=== PATIENT | female | born 1940 | race Caucasian/White ===

== ENCOUNTER → 2021-03-22 | Outpatient (CLI) | payer MEDICARE ==
[~2021-03-22] MED LIST: ASPI81CH PO; Lopressor 25 mg25 MG PO
== END ==
LOC: LAB 11:46 → LAB SHORT 11:46
DX: D48.5 Neoplasm of uncertain behavior of skin (principal)
CPT/HCPCS: 88305

== ENCOUNTER 2021-04-19 08:09 | Day surgery (SDC) | payer MEDICARE ==
[~2021-04-19] VITALS: Ht 172.7 cm; Wt 53.0 kg
[~2021-04-19 08:09] MED LIST changes: +AMIT25 PO; +GABA100 PO; +Percocet 5-3251 EACH PO
--- NOTE | 2021-04-19 16:42 | NUR ---
TO RECOVERY ROOM VIA [facility]. PT IS AWAKE AND ORIENTED. TR BAND RIGHT RADIAL WITH 15 CC AIR. HAND IS BLUE. 1 CC AIR REMOVED. HAND IS NOW PINK. MOTION AND SENSATION NORMAL. RIGHT GROIN SOFT NONTENDER WITH ANGIOSEAL. LEFT GROIN SOFT AND NO TENDER.
--- NOTE | 2021-04-19 16:45 | NUR ---
#14 HODGE PLACED. PT UNABLE TO VOID LAYING FLAT.
--- NOTE | 2021-04-19 16:55 | NUR ---
CO/NAUSEA AND DRY HEAVE VOMITING. ZOFRAN GIVEN PER VERBAL ORDER.
--- NOTE | 2021-04-19 17:03 | NUR ---
BP DOWN AFTER APRESOLINE IV IN ANALYTICS INTERN. PT RESTING AT THIS TIME.HODGE DRAINS CLEAR DK YELLOW URINE.
--- NOTE | 2021-04-19 17:51 | NUR ---
ALL SITES VISUALIZED. 1 CC AIR REMOVED FROM TR BAND.
--- NOTE | 2021-04-19 17:51 | NUR ---
Report given to Abdulaziz CHAPMAN.
--- NOTE | 2021-04-19 18:02 | NUR ---
assumed care of patient from Neda CHAPMAN. right and left groin sites soft and nontender. no bleeding no hematoma. right radial site with TR band in place no bleeding, no hematoma.
--- NOTE | 2021-04-19 18:25 | NUR ---
4 MG ZOFRAN IV GIVEN FOR NAUSEA/VOMIT.
--- NOTE | 2021-04-19 18:32 | NUR ---
PATIENT TALKING TO FAMILY ON PHONE. STATES THAT NAUSEA IS RESOLVING.
--- NOTE | 2021-04-19 19:00 | NUR ---
HODGE DCED WITH 500 CC CLEAR YELLOW URINE IN BAG. PATIENT AMBULATED TO RESTROOM TO TRY AND VOID. VOIDED SMALL AMOUNT OF URINE.
--- NOTE | 2021-04-19 19:15 | NUR ---
IV SITE DCED WITH CATHETER IN TACT. CLOTH DOT TO RIGHT RADIAL ARTERY SITE. ARM BOARD PLACED. PATIENT DRESSED AND SLING TO RIGHT ARM PLACED.
--- NOTE | 2021-04-19 19:24 | NUR ---
AIR REMOVED FROM TR BAND. TR BAND REMAINS IN PLACE. SITE SOFT AND NONTENDER. NO BLEEDING. NO HEMATOMA. RIGHT AND LEFT GROIN SITES SOFT AND NONTENDER. NOHEMATOMA NO BLEEDING.
--- NOTE | 2021-04-19 19:32 | NUR ---
PATIENT VERBALIZED UNDERSTANDING OF DISCHARGE INSTRUCTIONS AND PRECAUTIONS. BILATERAL GROIN SITES STABLE. RIGHT RADIAL SITE STABLE. PATIENT DENIES NAUSEA. PATIENT TAKEN BY WHEEL CHAIR TO WAITING CAR BY BUD CHAPMAN.
== END 2021-04-19 23:02 | disposition home or self-care (01) ==
LOC: MHTC 08:09
DX: I70.223 Atherosclerosis of native arteries of extremities with rest pain, bilateral legs (principal); Z87.891 Personal history of nicotine dependence
CPT/HCPCS: 76937; 93005; 93010; 99152; 99153; C1725; C1760; C1769; C1773; C1874; C1876; C1887; C1894; J0360; J1644; J2250; J2405; J3010; J7030; J7040; J7050; Q9967

== ENCOUNTER 2021-08-11 06:25 | Day surgery (SDC) | payer MEDICARE ==
[~2021-08-11] VITALS: Ht 172.7 cm; Wt 53.5 kg
[2021-08-11] MEDS ORDERED: Percocet 5-3251 EACH PO (07:07)
--- NOTE | 2021-08-11 10:41 | NUR ---
PT RETURNED TO RECOVERY ROOM IN BED. RIGHT FEMORAL GROIN SITE SOFT NON-TENDER WITH NO HEMATOMA, NO BLEEDING AND INTACT DRESSING. LEFT PT SITE SOFT NON-TENDER WITH NO HEMATOMA,WITH SLIGHT TRACK OOZING NOTED AND INTACT DRESSING. PT DENIES CHEST PAIN AND CALL LIGHT IN REACH.
[2021-08-11] MEDS ORDERED: CLOP75 PO (11:29)
--- NOTE | 2021-08-11 12:04 | NUR ---
PT STATES NAUSEA IMPROVING.
--- NOTE | 2021-08-11 12:35 | NUR ---
PT EATING LUNCH. NO CHANGES TO R FEM OR L PT SITES.
--- NOTE | 2021-08-11 13:15 | NUR ---
NO CHANGES TO RIGHT FEMORAL GROIN SITE OR LEFT PT SITE. DISCHARGE INSTRUCTIONS REVIEWED AND ALL QUESTIONS ANSWERED. DR MCKEON IN ROOM TO SEE PT.
--- NOTE | 2021-08-11 13:46 | NUR ---
20 G IV DISCONTINUED FROM RIGHT AC WITH INTACT CANNULA. PT ESCORTED OUT VIA WHEELCHAIR ESCORT.
== END 2021-08-11 14:02 | disposition home or self-care (01) ==
LOC: MHTC 06:25
DX: I70.223 Atherosclerosis of native arteries of extremities with rest pain, bilateral legs (principal); F17.200 Nicotine dependence, unspecified, uncomplicated
CPT/HCPCS: 37220; 37221; 37223; 37224; 75716; 75774; 76937; 85347; 99152; 99153; A9270; C1725; C1760; C1769; C1874; C1876; C1887; C1894; J1644; J2250; J2405; J3010; J7030; J7050; Q9967

== ENCOUNTER 2023-05-18 10:45 | Inpatient (IN) | payer MEDICARE ==
[2023-05-18] VITALS (12 sets, daily range): BP systolic 95–131; BP diastolic 61–87
[~2023-05-18] VITALS: Ht 172.7 cm; Wt 50.2 kg
[~2023-05-18 10:45] MED LIST changes: +ASPIR 8181 M1 PO; +CILO100 PO; +CLOP75 PO; +ROSU10TA PO; +XARELTO20 MG PO
[2023-05-18] MEDS ORDERED: HYDR1TAB94 PO (11:35)
--- NOTE | 2023-05-18 14:10 | NUR ---
PT BACK TO RECOVERY FROM LAB. PT RESTING FLAT IN BED W/ EYES CLOSED. GROIN SITE SOFT AND NON-TENDER. NO BLEEDING NOTED.
--- NOTE | 2023-05-18 14:12 | NUR ---
NAVYA PUT IN PLACE BY TOMAS CHAPMAN
--- NOTE | 2023-05-18 14:37 | NUR ---
DR MCKEON AT BEDSIDE DISCUSSING PLAN OF CARE WITH PT AND CALLED DAUGHTER TO INFORM HER OF PLAN WELL.
--- NOTE | 2023-05-18 14:50 | NUR ---
PT ADJUSTED IN BED. PT PLACED ON O2 VIA NC AT 4 LPM. PT RESTING W/ EYES CLOSED.
--- NOTE | 2023-05-18 16:03 | NUR ---
PT FOUND TO BE SOILED. BEDDING CHANGED. PT NOW SITTING UP. GROIN SITE SOFT AND NON-TENDER.
--- NOTE | 2023-05-18 16:04 | NUR ---
NO SIGN OF BLEEDING TO GROIN SITE.
--- NOTE | 2023-05-18 16:53 | NUR ---
PT BEDDING CHANGED. ATTENDS PLACED. PT GIVEN WARM BLANKET. GROIN SITE SOFT AND NON-TENDER PER PT. NO BLEEDING NOTED. PT REPORTS CONTINUED PAIN TO L LOWER LEG. PT AMBULATED W/ ASSISTANCE TO BSC UPON ARRIVAL TO PCU. REPORT GIVEN TO ROUGH AND TRUING MACHINE OPERATOR.
--- NOTE | 2023-05-18 19:30 | NUR ---
SHIFT SUMMARY PT ARRIVED TO UNIT AT APPROXIMATELY 1615 FROM [facility]. SHE IS ON RA AND MAINTAINING 02 SATURATION ABOVE 92%, AND DENIES SOB. HER HR SR 90'S-LOW 100'S, SHE DENIES CHEST PAIN/PRESSURE. PT COMPLAINS OF L HIP PAIN THAT GOES ALL THE WAY DOWN HER LEFT LEG TO HER TOES, PT MEDICATED PER EMAR. PT WALKS TO BEDSIDE COMMODE WITH HER CANE AND STAND BY ASSIST. PT SAID SHE HAS BEEN EXPERIENCING OCCASIONAL INCONTINENCE SO SHE IS WEARING A BRIEF. SHE HAS NOT HAD AN INCONTINENT EPISODE SINCE ARRIVING TO UNIT. PT HAS FAMILY AT BEDSIDE. BEDSIDE SHIFT REPORT PERFORMED WITH INFORMATION TECHNOLOGY PROFESSOR NURSE, THIS RN, AND PT. PT RESTING IN BED WITH TV ON, CALL LIGHT WITHIN REACH.
[2023-05-18] MEDS ORDERED: XARELTO20 MG PO (20:03)
[2023-05-19 04:21] VITALS: BP 110/52
[2023-05-19 05:03] LABS: BASOPHILS ABSOLUTE AUTO 0.08 K/mm3 (0.00-0.23); BASOPHILS PERCENT AUTO 1 % (0-2); EOSINOPHILS ABSOLUTE AUTO 0.25 K/mm3 (0.00-0.68); EOSINOPHILS PERCENT AUTO 2 % (0-6); Hematocrit 33.6 % (33.0-51.0); IMMATURE GRAN ABSOLUTE AUTO 0.07 K/mm3 (0.00-0.10); IMMATURE GRAN PERCENT AUTO 1 % (0-1); LYMPHOCYTES PERCENT AUTO 8 % (21-46); MONOCYTES ABSOLUTE AUTO 0.99 K/mm3 (0.16-1.47); MONOCYTES PERCENT AUTO 8 % (4-13); Mean Corpuscular HGB 28.5 pg (26.0-34.0); Mean Corpuscular HGB Conc 32.7 g/dL (31.5-36.5); Mean Corpuscular Volume 87 fL (80-100); Mean Platelet Volume 9.3 fL (9.1-12.4); NEUTROPHILS PERCENT AUTO 80 % (41-73); Platelet Count 244 K/mm3 (150-400); RDW Coefficient Variation 12.8 % (11.7-14.2); RDW Standard Deviation 40.5 fL (35.1-46.3); Red Blood Cell Count 3.86 M/mm3 (3.80-5.20); White Blood Cell Count 12.09 K/mm3 (4.00-11.30)
--- NOTE | 2023-05-19 05:23 | NUR ---
SHIFT SUMMARY. PT AOX4, COOPERATIVE WITH CARE. PRIMARY GOAL OF SHIFT HAS BEEN PAIN MANAGEMENT. R GROIN SITE REMAINS C/D/I. NO COMPLAINTS OF PAIN AT R GROIN SITE. PRIMARY AREA OF COMPLAINT OF PAIN HAS BEEN LEFT LOWER EXTREMITY, SOME IN LEFT HIP. PT HAS BLE ISCHEMIA, PLAN IS TO MANAGE OUTPATIENT WITH [facility]. SPOKE WITH RESIDENT EARLY IN SHIFT, SWITCHED FENTANYL IV TO DILAUDID 0.5-1 MG IV Q4 PRN. BETWEEN NORCO 5 MG Q4 AND DILAUDID Q4 PT PAIN HAS NOT BEEN CONSISTENTLY ADEQUATELY MANAGED. PT DESCRIBES LLE PAIN "PINS AND NEEDLES". RESIDENT ALSO ORDERED ONE TIME DOSE OF GABAPENTIN TO SUPPLEMENT HER SCHEDULED GABAPENTIN LAST NIGHT AND INCREASED DAILY GABAPENTIN GOING FORWARD. STILL, PT FREQUENTLY COMPLAINS OF PAIN AND IS ONLY SPORADICALLY ABLE TO SLEEP. LLE PULSE PALPABLE ALTHOUGH CAP REFILL >3 SECONDS, 2nd/3rd/4th DIGITS OF LEFT FOOT WHITE. TELE HAS BEEN ON THROUGHOUT SHIFT WITH NO EVENTS, PT TACHY WHEN PAIN ESCALATES. 1 PERSON ASSIST TO BEDSIDE COMMODE, FREQUENT URGENT VOIDING BUT ONLY PRODUCES SMALL AMOUNT WHEN ATTEMPTING TO DO SO. PT CALLS APPROPRIATELY AND IS ABLE TO MAKE NEEDS KNOWN. BED HAS BEEN LOCKED IN LOWEST POSITION. PT HAS BEEN CONTINENT THROUGHOUT SHIFT THUS FAR. PT HAD ONE INSTANCE OF DESATURATION INTO MID 80s WHILE SLEEPING EARLY THIS MORNING SO APPLIED 2 L 02 VIA NC JUST WHILE SLEEPING AND PT HAS BEEN MAINTAINING >92% SINCE. SATTING WELL ON ROOM AIR WHILE AWAKE AND RESPIRATIONS EVEN/UNLABORED AT REST. CONTINUING TO MONITOR.
[2023-05-19 05:27] LABS: Albumin, Blood 2.4 g/dL (3.4-5.0); Albumin/Globulin Ratio 0.6 (0.8-1.8); Bilirubin, Total 0.6 mg/dL (0.1-1.0); Bun/Creatinine Ratio 21.8 (12.0-20.0); Calcium, Blood 8.3 mg/dL (8.5-10.1); Creatinine, Blood 0.73 mg/dL (0.40-1.00); Globulin, Blood 3.9 g/dL (2.2-4.0); Total Protein, Blood 6.3 g/dL (6.4-8.2)
[2023-05-19 07:36] VITALS: BP 90/74
[2023-05-19 11:50] VITALS: BP 97/48
--- NOTE | 2023-05-19 13:30 | NUR ---
PT ALERT AND ORIENTED X 4, COOPERATIVE WITH CARE AND ABLE TO MAKE NEEDS KNOWN. JV. ATTENDANCE SECRETARY REPORTED THEY PLACED 3L NC ON PT HER OXYGEN SATURATION WAS DIPPING INTO THE 80'S W/EXERTION. PT STILL ON 3L NC AND MAINTAINING 02 SATURATION ABOVE 92%, PT DENIES SOB. PT'S HR 90'S-100'S, SHE DENIES CHEST PAIN/PRESSURE. PT CONTINENT BUT SAID SHE HAS BEEN RECENTLY HAVING SOME INCONTINENCE AND URGENCY/FREQUENCY, ATTENDS IN PLACE AND CHANGED PRN. SHE HAS NOT HAD AN EPISODE OF INCONTINENCE TODAY. PT UP TO BEDSIDE COMMODE OFTEN WITH SBA. PT EPRESSED AT BEGINNING OF SHIFT THAT HER MAIN CONCERN TODAY WAS HER LEVEL OF PAIN IN HER L HIP/LEG/FOOT DUE TO ISCHEMIA. MD NOTIFIED, ORDERS PLACED, PT MEDICATED PER EMAR. SINCE DOSE CHANGE OF PAIN MEDICATIONS PT HAS BEEN ABLE GET SOME SLEEP TODAY. ATTENDANCE SECRETARY REPORTED THAT SHE WAS UP THE MAJORITY OF THE NIGHT DUE TO HER PAIN. PT HAD A CTA TODAY AND IS DUE TO HAVE AN ECHO WELL. DISK OF CTA IN PT'S CHART FOR HER TO TAKE WITH HER WHEN SHE DISCHARGES, CTA DEPARTMENT ALSO NOTIFIED REPORT NEEDS TO BE SENT TO [facility]. IT WAS CONFIRMED TODAY WITH [facility] THAT PT HAS APT SCHEDULED FOR NEXT MONDAY IN [place] WITH [facility]. PT HAD A COUPLE VISITORS EARLIER IN THE SHIFT TODAY. PT CURRENTLY RESTING IN HER BED WITH THE TV ON. CALL LIGHT WITHIN REACH.
[2023-05-19 16:13] VITALS: BP 91/56
--- NOTE | 2023-05-19 17:29 | NUR ---
SHIFT SUMMARY NO ACUTE CHANGES, SEE PREVIOUS NOTE. ECHO WAS PERFORMED. DISC FOR ECHO AND CTA GIVEN TO PT & HER FAMILY TO TAKE WITH HER TO HER APT NEXT MONDAY. PTS PAIN IS CURRENTLY 2/10, SHE SAID HER PAIN HAS BEEN REDUCED GREATLY TODAY AND THAT HER PAIN LEVEL IS TOLERABLE FOR HER AT THIS TIME. PTS FAMILY HAS BEEN WITH HER AT BEDSIDE FOR SEVERAL HOURS THIS AFTERNOON. PT HAD SHOWER WITH 2 PERSON ASSIST THIS EVENING AND SHE TOLERATED IT WELL. CURRENT PLAN IS FOR PT TO D/C TOMORROW. THIS RN SPOKE WITH PT'S DAUGHTER AND SHE SAID THAT PT WILL BE STAYING WITH FAMILY AFTER SHE D/C'S. PT CURRENTLY SITTING UP IN CHAIR EATING HER DINNER WITH A FAMILY MEMBER IN THE ROOM. CALL LIGHT WITHIN REACH.
[2023-05-19 20:44] VITALS: BP 100/60
[2023-05-20 00:29] VITALS: BP 103/59
[2023-05-20 03:37] VITALS: BP 84/56
--- NOTE | 2023-05-20 03:58 | NUR ---
LOW BP ON 0400 VITALS OF 84/56. CALLED TO NOTIFY RESIDENT. ORDERED 500 ML NS BOLUS. ORDER ENTERED AND WILL ADMINISTER ONCE AVAILABLE.
[2023-05-20 04:03] VITALS: BP 84/56
[2023-05-20 04:53] VITALS: BP 125/64
--- NOTE | 2023-05-20 05:14 | NUR ---
SHIFT SUMMARY. SHIFT LARGELY UNREMARKABLE. PT AOX4, COOPERATIVE WITH CARE. CALLS APPROPRIATELY, ABLE TO MAKE NEEDS KNOWN. 1 PERSON TRANSFER WITHIN ROOM. OVERALL, PAIN HAS BEEN MUCH BETTER MANAGED AND BETTER MITIGATED THIS SHIFT THAN PREVIOUS SHIFT WITH THIS RN. ONLY BREAKTHROUGH PAIN VERY SPORADICALLY AND PT HAS BEEN ABLE TO NONPHARMACOLOGICALLY MANAGE PAIN VIA LEG DANGLING, STANDING, SITTING IN CHAIR. ENCOURAGED PT TO ABSTAIN FROM USING IV DILAUDID IF AT ALL POSSIBLE AND PT HAS BEEN UNDERSTANDING AND IS AT THIS TIME HAPPY WITH LEVEL OF PAIN MANAGEMENT ACHIEVED. BP LOW ON 0400 VITALS, SEE RELATED NOTE FOR EXPANDED DETAILS. NS 500 ML BOLUS ADMINISTERED AND BP HAS RISEN TO ACCEPTABLE LEVEL. PT LFA IV CONTINUES TO LEAK SOME, APPEARS TO BE POSITIONAL WITH PARTICULAR ARM POSITIONS LEADING TO MORE LEAKAGE THAN OTHERS. HAVE OPTED TO NOT INSERT NEW IV FOR TIME BEING PT ANTICIPATES DISCHARGE TODAY ON DAY SHIFT. SHIFT OTHERWISE UNREMARKABLE. PT CONTINUES TO EXPERIENCE URINARY FREQUENCY WITH VERY LITTLE OUTPUT ON EACH VOID. BED LOCKED IN LOWEST POSITION. CALLS APPROPRIATELY FOR ASSISTANCE. CALL LIGHT LEFT WITHIN REACH. CONTINUING TO MONITOR.
[2023-05-20 07:23] VITALS: BP 113/54
[2023-05-20] MEDS ORDERED: Norco 10-325 T1 EACH PO (11:41)
[2023-05-20 11:49] VITALS: BP 91/65
--- NOTE | 2023-05-20 12:02 | NUR ---
PT IS ALERT AND ORIENTED X 4, COOPERATIVE WITH CARE AND ABLE TO MAKE NEEDS KNOWN. JV. SHE IS OFF OXYGEN VIA NC SHE IS NOT BEING DISCHARGED WITH IT PER MD AND SHE DOES NOT USE OXYGEN AT BASELINE. PT DENIES SOB. HER HR SINUS ARRHYTHMIA 90'S-110'S, LAST BP OF 91/65, SHE DENIES CHEST PAIN/PRESSURE. SHE HAS NOT HAD AN EPISODE OF INCONTINENCE TODAY, SHE CONTINUES TO USE BEDSIDE COMMODE AND TOLERATES WELL, BRIEF IN PLACE AND CHANGED PRN. PT CONTINUES TO HAVE L HIP/LEG/FOOT PAIN DUE TO BLE ISCHEMIA. FEET ARE DISCOLORED AND COOL TO THE TOUCH. UNABLE TO PALPATE PEDAL PULSES AND UNABLE TO FIND WITH DOPPLER. PT ABLE TO WALK AROUND ROOM SLOWLY WITH CANE AND 1 PERSON ASSIST. PT HAS APT WITH [facility] ON MONDAY. SHE IS DISCHARGING TODAY. PLAN IS FOR PT'S DAUGHTER TO PICK HER UP AND SHE WILL BE STAYING WITH FAMILY. PT CURRENTLY GETTING READY FOR DISCHARGE WITH ASSIST FROM DRYWALL APPLICATION SUPERVISOR. PER PT'S REQUEST, WAITING TO GO OVER D/C INSTRUCTIONS UNTIL HER DAUGHTER GETS HERE. CALL LIGHT WITHIN REACH OF PT.
--- NOTE | 2023-05-20 13:30 | NUR ---
PT DISCHARGED FROM FACILITY AT APPROXIMATELY 1340. DISCHARGE INSTRUCTIONS GONE OVER WITH PT AND HER DAUGHTER, ALL QUESTIONS WERE ANSWERED. PT LEFT WITH ALL OF HER BELONGINGS AND D/C PACKET. SHE WAS STABLE UPON TRANSFER. SHE WAS WHEELED OUT VIA WHEELCHAIR BY VENEER REPAIRER MACHINE TO CAR THAT HER DAUGHTER WAS DRIVING HER HOME IN.
== END 2023-05-20 13:58 | disposition home or self-care (01) | DRG 254 ==
LOC: PCU 10:45 → MHTC 10:45 → PCU 16:24 → MHTC 05-19 15:29 → PCU 05-19 15:30 → MHTC 05-19 21:22 → PCU 05-19 21:22
PROVIDERS: Hospitalist; ADMIT Physician Assistant
PROC: 047C3ZZ Dilation of Right Common Iliac Artery, Percutaneous Approach (ICD-10-PCS; principal; 2023-05-19)
PROC: 04703ZZ Dilation of Abdominal Aorta, Percutaneous Approach (ICD-10-PCS; 2023-05-19)
PROC: B41D1ZZ Fluoroscopy of Aorta and Bilateral Lower Extremity Arteries using Low Osmolar Contrast (ICD-10-PCS; 2023-05-19)
DX: I70.223 Atherosclerosis of native arteries of extremities with rest pain, bilateral legs (principal); I70.0 Atherosclerosis of aorta; J44.9 Chronic obstructive pulmonary disease, unspecified; F17.210 Nicotine dependence, cigarettes, uncomplicated; I77.1 Stricture of artery; G89.4 Chronic pain syndrome; Z60.2 Problems related to living alone; Z79.82 Long term (current) use of aspirin; Z79.891 Long term (current) use of opiate analgesic; Z79.01 Long term (current) use of anticoagulants; Z95.820 Peripheral vascular angioplasty status with implants and grafts; Z85.3 Personal history of malignant neoplasm of breast
CPT/HCPCS: 36415; 37220; 71275; 74174; 75625; 75716; 76937; 80053; 85025; 93306; 94760; 94761; 94762; 99152; 99153; A9270; C1725; C1760; C1769; C1887; C1894; J1170; J1644; J2250; J2405; J3010; J7030; J7040; J7050; J7120; Q9967